=== PATIENT | female | born 1995 | race Caucasian/White ===

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

== ENCOUNTER 2018-03-08 10:09 | Emergency (ER) | payer BC, MEDICAID ==
[2018-03-08] MEDS ORDERED: Albuterol-Ipratrop 3 mg / 0.5 (3 ml) UD INH STA (10:39)
[2018-03-08] MEDS ORDERED: Albuterol-Ipratrop 3 mg / 0.5 (3 ml) UD ONE ×2 (10:45→10:52)
--- NOTE | 2018-03-08 10:46 | ED PDOC ---
HPI: Influenza Time Seen by Provider: 03/08/18 10:11 Chief Complaint: Cough, Cold, Congestion History Per: Patient Additional complaint(s):: Pt. states for the past 7 days she's had cough (with post tussive vomiting) and wheezing unrelieved with her albuterol nebulizer. States she's been using her her albuterol neb more frequently over the course and last night wheezing became worse. Reports feeling feverish once initially but resolved spontaneously without any meds. Reports a hx of multiple admissions for asthma but is uncertain if she was ever intubated in the past. Denies chills, chest pain, rash, sick contacts, recent travel, abdominal pain, diarrhea. Past Medical History Reviewed: Historical Data, Nursing Documentation, Vital Signs Vital Signs: Last Vital Signs Temp 98 F 03/08/18 10:33 Pulse 109 H 03/08/18 10:33 Resp 18 03/08/18 10:33 BP 105/67 03/08/18 10:33 Pulse Ox 97 03/08/18 10:33 - Medical History PMH: Asthma - Surgical History Surgical History: No Surg Hx - Family History Family History: States: No Known Family Hx - Home Medications Home Medications: Ambulatory Orders Medication Instructions Recorded Acetaminophen/Aspirin/Caffei 1 tab PO Q6 06/30/14 [Excedrin Migraine 250 mg-250 mg-65 mg] Acetaminophen/Butalbital/Caf 1 tab PO Q6 PRN #25 tab 06/30/14 [Fioricet 325 mg-50 mg-40 mg] Ibuprofen [Motrin Tab] 600 mg PO Q8 PRN #60 tab 12/27/15 Doxycycline Monohydrate 100 mg PO BID #14 capsule 08/28/16 Sulfamethoxazole/Trimethoprim 1 tab PO BID #14 tab 08/28/16 [Bactrim DS 800 mg-160 mg] Nitrofurantoin Macrocrystals 1 cap PO BID #14 cap 08/29/16 [Macrobid] Valacyclovir HCl [Valtrex] 1,000 mg PO BID #14 tablet 08/29/16 Albuterol 0.083% [Albuterol 3 ml IH Q4 PRN #50 neb 03/08/18 Sulfate 3 Ml] Azithromycin [Zithromax] 250 mg PO DAILY #4 tab 03/08/18 predniSONE [Prednisone] 40 mg PO DAILY #8 tab 03/08/18 - Allergies Allergies/Adverse Reactions: Allergies Allergy/AdvReac Type Severity Reaction Status Date / Time pineapple Allergy SWELLING Verified 03/08/18 10:27 red dye Allergy URTICARIA Verified 03/08/18 10:27 Review of Systems ROS Statement: Except As Marked, All Systems Reviewed And Found Negative Constitutional: Positive for: Fever Respiratory: Positive for: Cough, Wheezing Physical Exam - Physical Exam Appears: Positive for: Well, Non-toxic, No Acute Distress (speaking in full sentences) Skin: Positive for: Normal Color, Warm. Negative for: Rash Eye Exam: Positive for: EOMI, Normal appearance, PERRL ENT: Positive for: Normal ENT Inspection Cardiovascular/Chest: Positive for: Regular Rate, Rhythm Respiratory: Positive for: Decreased Breath Sounds, Wheezing (minimal b/l expiratory wheezing). Negative for: Respiratory Distress Gastrointestinal/Abdominal: Positive for: Normal Exam, Soft. Negative for: Tenderness Neurologic/Psych: Positive for: Alert, Oriented (x3) - ECG ECG: Positive for: Interpreted By Me ECG Rhythm: Positive for: Sinus Rhythm. Negative for: ST/T Changes Rate: 93 O2 Sat by Pulse Oximetry: 97 - Radiology X-Ray: Interpreted by Ma (CXR) X-Ray Interpretation: Other (possible RLL infiltrate) - Progress ED Course And Treament: DuoNeb x 3, prednisone 40mg PO, CXR, EKG ordered. Re-evaluation Time: 12:00 (Initial peak flow: 150, post peak flow: 250. Reports feeling much better. Lungs clear b/l. Informed of CXR results. Zithromax 500mg PO once. Advised to f/u with Shruthi for further evaluation but is to return to ED immediately if symptoms worsen. ) Condition: Re-examined, Improved Disposition - Clinical Impression Clinical Impression: Pneumonia, Bronchospasm - Patient ED Disposition Is Patient to be Admitted: No - Disposition Referrals: Jarett Brody MD [Staff Provider] - Disposition: Routine/Home Disposition Time: 12:09 Condition: IMPROVED Additional Instructions: FOLLOW UP WITH E[facility]E FOR FURTHER EVALUATION RETURN TO ED IMMEDIATELY IF SYMPTOMS WORSEN JENNIFER CHAND, thank you for letting us take care of you today. Your provider was Riddhi Mccauley MD and you were treated for VOMITING. The emergency medical care you received today was directed at your acute symptoms. If you were prescribed any medication, please fill it and take as directed. It may take several days for your symptoms to resolve. Return to the Emergency Department if your symptoms worsen, do not improve, or if you have any other problems. Please contact your doctor or call one of the physicians/clinics you have been referred to that are listed on the Patient Visit Information form that is included in your discharge packet. Bring any paperwork you were given at discharge with you along with any medications you are taking to your follow up visit. Our treatment cannot replace ongoing medical care by a primary care provider outside of the emergency department. Thank you for allowing the [facility] team to be part of your care today. If you had an X-Ray or CT scan: A Radiologist will review the ED reading if any change in treatment is needed we will contact you. If you had a blood, urine, or wound culture: It will take several days for the results, if any change in treatment is needed we will contact you. If you had an STI test: It will take 48 hours for the results. Please call after 1 week if you have not heard back. Prescriptions: Albuterol 0.083% [Albuterol Sulfate 3 Ml] 3 ml IH Q4 PRN #50 neb PRN Reason: Wheezing Azithromycin [Zithromax] 250 mg PO DAILY #4 tab predniSONE [Prednisone] 40 mg PO DAILY #8 tab Instructions: Pneumonia, Adult (DC) Forms: [employer] (Dominican), [facility] ED School/Work Excuse Print Language: K[place]ILI
[2018-03-08 13:07] VITALS: BP 106/65; PULSE 95; RESP 19; TEMP 99; O2SAT 98
--- NOTE | 2018-03-08 15:37 | RAD ---
Date of service: 03/08/2018 HISTORY: Cough COMPARISON: No prior. TECHNIQUE: Chest PA and lateral FINDINGS: LUNGS: No active pulmonary disease. PLEURA: No significant pleural effusion identified. No pneumothorax apparent. CARDIOVASCULAR: No aortic atherosclerotic calcification present. Normal cardiac size. No pulmonary vascular congestion. OSSEOUS STRUCTURES: No significant abnormalities. VISUALIZED UPPER ABDOMEN: Normal. OTHER FINDINGS: None. IMPRESSION: No active disease.
--- NOTE | 2018-03-09 00:21 | CARD ---
APPROVED REPORT Date of service: 03/08/2018 EKG Measurement Heart [id number] <Conclusion> Normal sinus rhythm Normal ECG
== END 2018-03-08 13:55 | disposition home or self-care (01) ==
LOC: H.ER 10:09
DX: J18.9 Pneumonia, unspecified organism (principal); J98.01 Acute bronchospasm